=== PATIENT | male | born 1975 | race Caucasian/White ===

== ENCOUNTER → 2017-09-17 | Outpatient (CLI) | payer OTHER ==
[2017-09-17 09:38] LABS: BASOPHIL % 0.3 % (0-2); PLATELET COUNT 218 x10^3mcL (130-400); RED CELL DISTRIBUTION WIDTH 13.8 % (11.5-14.5)
[2017-09-17 10:15] LABS: ALBUMIN 4.3 g/dL (3.4-5.0); ALKALINE PHOSPHATASE 41 U/L (46-116); ALT/SGPT 19 U/L (16-63); AST/SGOT 18 U/L (15-37); BILIRUBIN TOTAL 0.9 mg/dL (0.20-1.00); CALCIUM 8.5 mg/dL (8.5-10.1); CARBON DIOXIDE 32.5 mmol/L (21-32); CHLORIDE SERUM 98 mmol/L (98-107); CHOLESTEROL 170 mg/dL (<200); CREATININE SERUM 1.3 mg/dL (0.7-1.3); GFR1 > 60 mL/min; GLUCOSE SERUM 96 mg/dL (74-106); SODIUM SERUM 141 mmol/L (136-145); TOTAL PROTEIN, SERUM 7.2 g/dL (6.4-8.2); TRIGLYCERIDES 115 mg/dL (<150)
[2017-09-17 10:16] LABS: CHOLESTEROL/HDL RATIO 2.7; HDL CHOLESTEROL 63 mg/dL (40-60)
== END | disposition home or self-care (01) ==
LOC: LB 08:42
DX: Z00.00 Encounter for general adult medical examination without abnormal findings (principal); E56.9 Vitamin deficiency, unspecified; G89.29 Other chronic pain; M54.42 Lumbago with sciatica, left side; Z91.018 Allergy to other foods

== ENCOUNTER → 2018-04-13 | Outpatient (CLI) | payer OTHER ==
[2018-04-14 09:49] LABS: RAPID PLASMA REAGIN Non Reactive (Non Reactive)
== END | disposition home or self-care (01) ==
LOC: LB 14:24
DX: Z11.3 Encounter for screening for infections with a predominantly sexual mode of transmission (principal)

== ENCOUNTER 2019-09-20 10:02 | Emergency (ER) | payer OTHER, SELFPAY ==
[~2019-09-20] VITALS: Ht 190.5 cm; Wt 81.6 kg
[2019-09-20 10:18] VITALS: Ht 190.5 cm; Wt 81.6 kg
[2019-09-20 10:57] LABS: microscopic required? NO
[2019-09-20 11:02] LABS: PLATELET COUNT 205 x10^3mcL (130-400); RED CELL DISTRIBUTION WIDTH 13.5 % (11.5-14.5)
[2019-09-20 11:06] LABS: CALCIUM 9.6 mg/dL (8.5-10.1); CARBON DIOXIDE 25.4 mmol/L (21-32); CHLORIDE SERUM 102 mmol/L (98-107); CREATININE SERUM 1.1 mg/dL (0.7-1.3); GFR1 > 60 mL/min; GLUCOSE SERUM 87 mg/dL (74-106); POTASSIUM SERUM 4.4 mmol/L (3.5-5.1); SODIUM SERUM 141 mmol/L (136-145)
[2019-09-20 11:10] LABS: urine erythrocyte NEGATIVE (NEGATIVE)
[2019-09-20 11:10] LABS: T3 TOTAL 1.2 ng/mL
[2019-09-20 11:11] LABS: ALBUMIN 4.5 g/dL (3.4-5.0); ALKALINE PHOSPHATASE 53 U/L (46-116); ALT/SGPT 34 U/L (16-63); AST/SGOT 28 U/L (15-37); BILIRUBIN TOTAL 0.9 mg/dL (0.20-1.00); CHOLESTEROL 182 mg/dL (<200); CHOLESTEROL/HDL RATIO 3.3; HDL CHOLESTEROL 56 mg/dL (40-60); LIPASE 111 IU/L (73-393); TOTAL PROTEIN, SERUM 7.9 g/dL (6.4-8.2); TRIGLYCERIDES 118 mg/dL (<150)
[2019-09-20 11:17] LABS: C REACTIVE PROTEIN < 0.2 mg/dL (<=0.9)
[2019-09-20 11:58] LABS: FREE T4 1.12 ng/dL (0.76-1.46); FREE THYROXINE INDEX 3.1 ug/dL (1.4-4.5); T4(THYROXINE) 8.8 ug/dL (4.7-13.3)
[2019-09-20 13:40] VITALS: BP 127/89
== END 2019-09-20 13:40 | disposition home or self-care (01) ==
LOC: ED 10:02
PROVIDERS: Specialist
DX: J45.901 Unspecified asthma with (acute) exacerbation (principal)
CPT/HCPCS: 36415; 36600; 83880; 84439; J7512

== ENCOUNTER → 2020-08-23 | Outpatient (CLI) | payer OTHER ==
[2020-08-24 09:06] LABS: IMMUNOGLOBULIN A 85 mg/dL (90-386); IMMUNOGLOBULIN G (QUANT) 704 mg/dL (603-1613); IMMUNOGLOBULIN M 85 mg/dL (20-172)
== END | disposition home or self-care (01) ==
LOC: LB 13:47 → ED 13:47
DX: J45.998 Other asthma (principal); R51.9 Headache, unspecified; R53.83 Other fatigue; R65.11 Systemic inflammatory response syndrome (SIRS) of non-infectious origin with acute organ dysfunction; E87.1 Hypo-osmolality and hyponatremia
CPT/HCPCS: 82785; 84402; 84403